=== PATIENT | male | born 1995 | race African-American/Black ===

== ENCOUNTER 2017-04-30 12:10 | Emergency (ER) | payer MEDICAID, OTHER ==
[~2017-04-30 12:10] MED LIST: OSEL75 PO
[2017-04-30 12:35] VITALS: BP 142/78; PULSE 110; RESP 16; TEMP 98.8; O2SAT 100
[2017-04-30 14:30] LABS: AUTOMATED NEUTROPHIL # 9.4 TH/MM3 (1.8-7.7); BASOPHIL % 0.3 % (0.0-2.0); EOSINOPHIL % 0.4 % (0.0-4.0); HEMATOCRIT 46.6 % (39.0-51.0); HEMOGLOBIN 15.8 GM/DL (13.0-17.0); LYMPH % 11.3 % (9.0-44.0); LYMPHOCYTE # 1.3 TH/MM3 (1.0-4.8); MEAN CELL VOLUME 83.9 FL (80.0-100.0); MEAN CORPUSCULAR HEMOGLOBIN 28.4 PG (27.0-34.0); MEAN CORPUSCULAR HGB CONC 33.9 % (32.0-36.0); MEAN PLATELET VOLUME 8.9 FL (7.0-11.0); MONO % 4.2 % (0.0-8.0); MONOCYTE # 0.5 TH/MM3 (0-0.9); NEUT % 83.8 % (16.0-70.0); PLATELET COUNT 289 TH/MM3 (150-450); RED BLOOD COUNT 5.56 MIL/MM3 (4.50-5.90); RED CELL DISTRIBUTION WIDTH 13.8 % (11.6-17.2); WHITE BLOOD COUNT 11.2 TH/MM3 (4.0-11.0)
[2017-04-30 14:50] LABS: ALBUMIN 4.2 GM/DL (3.4-5.0); ALT (GPT) 40 U/L (9-52); AST (GOT) 28 U/L (15-39); BICARBONATE 28.8 MEQ/L (21.0-32.0); BLOOD UREA NITROGEN 11 MG/DL (7-18); CALCIUM 9.2 MG/DL (8.5-10.1); CHLORIDE 103 MEQ/L (98-107); CREATININE 0.92 MG/DL (0.60-1.30); GLOMERULAR FILTRATION RATE 127 ML/MIN (>89); GLUCOSE,RANDOM 85 MG/DL (74-106); SODIUM (NA) 139 MEQ/L (136-145)
[2017-04-30 15:00] LABS: ALKALINE PHOSPHATASE 74 U/L (45-117); TOTAL BILIRUBIN ADULT 0.5 MG/DL (0.2-1.0); TOTAL PROTEIN 8.4 GM/DL (6.4-8.2)
[2017-04-30 15:18] LABS: ACETAMINOPHEN LESS THAN 2.0 MCG/ML (10.0-30.0)
--- NOTE | 2017-04-30 15:29 | PD ---
HPI Chief Complaint: Psychiatric Symptoms Time Seen by Provider: 15:10 Travel History International Travel<30 days: No Contact w/Intl Traveler<30days: No Traveled to known affect area: No History of Present Illness HPI 21-year-old male with history of aspergers syndrome presents under Esparza act initiated by the Police Department. According to his paperwork the patient posted a threatening statement on Facebook "this video actually making me want do the same shit such as killing up all her classmates in the room and everyone and [employer] I think I am be a serial killer one day and I really want to kill everyone that [employer]." The patient reports that he made that statement as a "prank" and did not mean what he said. He denies any suicidal or homicidal ideation. He denies any access to firearms. He denies any hallucinations. He denies any drug or alcohol use. He has no other complaints at this time. PFSH Past Medical History Medical History: Denies Significant Hx Diminished Hearing: No Immunizations Current: Yes Tetanus Vaccination: Unknown Influenza Vaccination: No Past Surgical History Surgical History: No Previous Surgery Social History Alcohol Use: No Tobacco Use: No Substance Use: No Allergies-Medications (Allergen,Severity, Reaction): Coded Allergies: No Known Allergies (Unverified Adverse Reaction, Unknown, 04/30/17) Reported Meds & Prescriptions Reported Meds & Active Scripts Active No Active Prescriptions or Reported Medications Review of Systems Except as stated in HPI: all other systems reviewed are Neg Physical Exam Narrative GENERAL: Well-developed well-nourished male in no acute distress SKIN: Warm and dry. HEAD: Atraumatic. Normocephalic. EYES: Pupils equal and round. No scleral icterus. No injection or drainage. ENT: No nasal bleeding or discharge. Mucous membranes pink and moist. NECK: Trachea midline. No JVD. CARDIOVASCULAR: Regular rate and rhythm. No murmur appreciated. RESPIRATORY: No accessory muscle use. Clear to auscultation. Breath sounds equal bilaterally. NEUROLOGICAL: Awake and alert. No obvious cranial nerve deficits. Motor grossly within normal limits. Normal speech. PSYCHIATRIC: Anxious, flat affect. Data Data Last Documented VS Vital Signs Date Time Temp Pulse Resp B/P (MAP) Pulse Ox O2 Delivery O2 Flow Rate FiO2 05/01/17 14:21 05/01/17 10:30 97 18 Room Air 05/01/17 06:33 96 04/30/17 12:35 98.8 Orders Orders Complete Blood Count With Diff (04/30/17 13:03) Comprehensive Metabolic Panel (04/30/17 13:03) Thyroid Stimulating Hormone (04/30/17 13:03) Psych Screen (04/30/17 13:03) Drug Screen, Random Urine (04/30/17 13:03) Alcohol (Ethanol) (04/30/17 13:03) Salicylates (Aspirin) (04/30/17 13:03) Tylenol (Acetaminophen) (04/30/17 13:03) Diet Regular Basic (04/30/17 Lunch) Diet Regular Basic (04/30/17 Dinner) Diet Regular Basic (05/01/17 Breakfast) Diet Regular Basic (05/01/17 Lunch) Ed Discharge Order (05/01/17 14:02) Labs Laboratory Tests Test 04/30/17 13:15 04/30/17 14:20 White Blood Count 11.2 TH/MM3 Red Blood Count 5.56 MIL/MM3 Hemoglobin 15.8 GM/DL Hematocrit 46.6 % Mean Corpuscular Volume 83.9 FL Mean Corpuscular Hemoglobin 28.4 PG Mean Corpuscular Hemoglobin Concent 33.9 % Red Cell Distribution Width 13.8 % Platelet Count 289 TH/MM3 Mean Platelet Volume 8.9 FL Neutrophils (%) (Auto) 83.8 % Lymphocytes (%) (Auto) 11.3 % Monocytes (%) (Auto) 4.2 % Eosinophils (%) (Auto) 0.4 % Basophils (%) (Auto) 0.3 % Neutrophils # (Auto) 9.4 TH/MM3 Lymphocytes # (Auto) 1.3 TH/MM3 Monocytes # (Auto) 0.5 TH/MM3 Eosinophils # (Auto) 0.0 TH/MM3 Basophils # (Auto) 0.0 TH/MM3 CBC Comment DIFF FINAL Differential Comment Blood Urea Nitrogen 11 MG/DL Creatinine 0.92 MG/DL Random Glucose 85 MG/DL Total Protein 8.4 GM/DL Albumin 4.2 GM/DL Calcium Level 9.2 MG/DL Alkaline Phosphatase 74 U/L Aspartate Amino Transf (AST/SGOT) 28 U/L Alanine Aminotransferase (ALT/SGPT) 40 U/L Total Bilirubin 0.5 MG/DL Sodium Level 139 MEQ/L Potassium Level 4.1 MEQ/L Chloride Level 103 MEQ/L Carbon Dioxide Level 28.8 MEQ/L Anion Gap 7 MEQ/L Estimat Glomerular Filtration Rate 127 ML/MIN Thyroid Stimulating Hormone 3rd Gen 1.990 uIU/ML Salicylates Level LESS THAN 1.7 MG/DL Acetaminophen Level LESS THAN 2.0 MCG/ML Ethyl Alcohol Level LESS THAN 3 MG/DL Urine Opiates Screen NEG Urine Barbiturates Screen NEG Urine Amphetamines Screen NEG Urine Benzodiazepines Screen NEG Urine Cocaine Screen NEG Urine Cannabinoids Screen NEG MDM Medical Decision Making Medical Screen Exam Complete: Yes Emergency Medical Condition: Yes Medical Record Reviewed: Yes Differential Diagnosis Adjustment reaction, ODD, conduct disorder, acute psychosis, major depressive disorder, intermittent explosive disorder Narrative Course 21-year-old male presents under Esparza act after making threatening statements on an online social media page. Mental health screening discussed with the patient. Psychiatric screen ordered. The patient is medically cleared for psychiatric disposition. Diagnosis Primary Impression: Medical clearance for psychiatric admission Scripts No Active Prescriptions or Reported Meds Juan Hennessy Apr 30, 2017 15:29
[2017-05-01 02:17] VITALS: BP 138/79; PULSE 107; RESP 19; O2SAT 97
[2017-05-01 06:33] VITALS: BP 129/81; PULSE 99; RESP 18; O2SAT 96
[2017-05-01 10:30] VITALS: BP 152/88; PULSE 97; RESP 18
--- NOTE | 2017-05-01 10:59 | PD ---
History of Present Illness Chief Complaint: Psychiatric Symptoms Time Seen by Provider: 10:50 Travel History International Travel<30 Days: No Contact w/Intl Traveler<30days: No Known affected area: No Legal Status Legal Status: Esparza Act Esparza Act Signed By: Hugo Doyle History of Present Illness: History of Present Illness HPI 21-year-old male with history of Asperger syndrome who presents under Esparza act initiated by the Police Department. According to his paperwork the patient posted a threatening statement on Facebook which reads as follows "this video actually making me want do the same shit such as killing up all her classmates in the room and everyone and [employer] I think I am be a serial killer one day and I really want to kill everyone that [employer]." The patient was taken to the police department and later was brought here to [facility] for psychiatric evaluation. Electronic medical record is reviewed. No previous contact with [facility] psychiatry Department. Toxicology report is negative. Patient has been monitored here in [facility] for extended period of time and has presented no behavioral concerns. He has denied to several staff members that he had any intention of harming anyone and that the call and the olivia that he made was a prank and that he was "playing around". Patient is seen this morning with KEVEN Lares. The patient is alert, oriented young male health in hospital scrubs. He is calm, cooperative and engaging. He appears of lower intellectual functioning. His speech is clear and he answers questions appropriately. He denies any intent of wanting to harm anyone and he goes on to say "I didn't mean what I said it was a prank and I don 't understand why they brought me here." The patient does not present any indication of any psychosis, no mary or hypomania. No significant clinical objective symptoms of depression or anxiety. He denies any past history of any violent behavior. He does not own any weapons and has no access to such. Telephone call to his mother, Oneyda at [phone]. She has no concerns over the remarks that he has made. She states that everybody makes mistakes. She also states that he has never been violent and has never been involved in any behavior which is of concern to her. She understands that when he said it is of concern to other people but he states that she has no reason to believe that he may want to harm anyone. No acces to weapons in the house. She also states that he is under her direct supervision all the time." I contacted the dice manager Mr. Jose Arenas to discuss case. Case has been discussed internally. PFSH Past Medical History Medical History: Denies Significant Hx Diminished Hearing: No Immunizations Current: Yes Tetanus Vaccination: Unknown Influenza Vaccination: No Past Surgical History Surgical History: No Previous Surgery Psychiatric History Psychiatric History Hx Psychiatric Treatment: Per mom: intellectually disabled, diagnosed with autism spectrum disorder in 2016, and Tourette's disorder. No history of disruptive behavior or violent behavior. History of Inpatient Treatment: No Guns or firearms in home: No Social History Single, never . Lives with his mother and his 2 other siblings. Attend[employer] high school and is in the 12th grade. Hx Alcohol Use: No Hx Tobacco Use: No Hx Substance Use: No Hx of Substance Use Treatment: No Family Psychiatric History Negative Allergies-Medications (Allergen,Severity, Reaction): Coded Allergies: No Known Allergies (Unverified Adverse Reaction, Unknown, 04/30/17) Reported Meds & Prescriptions Reported Meds & Active Scripts Active No Active Prescriptions or Reported Medications Review of Systems Ears, nose, mouth, throat: COMPLAINS OF: Hearing loss Psychiatric: DENIES: Anxiety, Confusion, Mood changes, Depression, Hallucinations, Agitation, Suicidal Ideation, Homicidal Ideation, Delusions Except as stated in HPI: all other systems reviewed are Neg Mental Status Examination Appearance: Appropriate Consciousness: Alert Orientation: x4 Motor Activity: Normal gait Speech: Unremarkable Language: Adequate Fund of Knowledge: Poor Attention and Concentration: Adequate Memory: Unremarkable (not formally tested) Mood: Appropriate Affect: Appropriate Thought Process & Associations: Intact, Logical, Goal directed Thought Content: Appropriate Hallucination Type: None Delusion Type: None Suicidal Ideation: No Suicidal Plan: No Suicidal Intention: No Homicidal Ideation: No Homicidal Plan: No Homicidal Intention: No Insight: Fair Judgment: Poor MDM Medical Decision Making Medical Record Reviewed: Yes Assessment/Plan 21-year-old male with history of Asperger's spectrum disorder who presents under Esparza act initiated by law enforcement after he allegedly made a Facebook posting indicating that he "wanted to do some she had such as calling up all the classmates in the room whenever went in [employer]. He also indicated that he I think, a be a serial killer one day and I really want to kill everybody and may leave high school". The patient was interrogated by the Police Department later. Him to [facility] for psychiatric evaluation. Patient was observed over a prolonged period of time and presented no behavioral dysregulation and no agitation or restlessness. There was no indication that the patient was experiencing any psychosis, no mary or hypomania. The patient denies any suicidal or homicidal ideation, intent or plan. He states that he made the message as a prank based on recent events that are over social media. He denies any intent of wanting to harm anyone. The patient has no access to any firearms. Furthermore the patient's mother has no concerns for her son's safety and indicates that he is supervised by her TIME. She also states that he has no history of any aggressive or violent behavior. She is advocating for his discharge from the hospital. She is advised of any changes in his his behavior concerns to bring him to the emergency department. The Esparza act is lifted as he presents no evidence of any unstable mental illness as defined under the Esparza act. The Esparza act is lifted. Patient is psychiatrically cleared for discharge Orders Orders Complete Blood Count With Diff (04/30/17 13:03) Comprehensive Metabolic Panel (04/30/17 13:03) Thyroid Stimulating Hormone (04/30/17 13:03) Psych Screen (04/30/17 13:03) Drug Screen, Random Urine (04/30/17 13:03) Alcohol (Ethanol) (04/30/17 13:03) Salicylates (Aspirin) (04/30/17 13:03) Tylenol (Acetaminophen) (04/30/17 13:03) Diet Regular Basic (04/30/17 Lunch) Diet Regular Basic (04/30/17 Dinner) Diet Regular Basic (05/01/17 Breakfast) Diet Regular Basic (05/01/17 Lunch) Results Vital Signs Date Time Temp Pulse Resp B/P (MAP) Pulse Ox O2 Delivery O2 Flow Rate FiO2 05/01/17 10:30 97 18 152/88 (109) Room Air 05/01/17 06:33 99 18 129/81 (97) 96 Room Air 05/01/17 02:17 107 19 138/79 (98) 97 Room Air 04/30/17 12:35 98.8 110 16 142/78 (99) 100 Laboratory Tests Test 04/30/17 13:15 04/30/17 14:20 White Blood Count 11.2 Red Blood Count 5.56 Hemoglobin 15.8 Hematocrit 46.6 Mean Corpuscular Volume 83.9 Mean Corpuscular Hemoglobin 28.4 Mean Corpuscular Hemoglobin Concent 33.9 Red Cell Distribution Width 13.8 Platelet Count 289 Mean Platelet Volume 8.9 Neutrophils (%) (Auto) 83.8 Lymphocytes (%) (Auto) 11.3 Monocytes (%) (Auto) 4.2 Eosinophils (%) (Auto) 0.4 Basophils (%) (Auto) 0.3 Neutrophils # (Auto) 9.4 Lymphocytes # (Auto) 1.3 Monocytes # (Auto) 0.5 Eosinophils # (Auto) 0.0 Basophils # (Auto) 0.0 CBC Comment DIFF FINAL Differential Comment Blood Urea Nitrogen 11 Creatinine 0.92 Random Glucose 85 Total Protein 8.4 Albumin 4.2 Calcium Level 9.2 Alkaline Phosphatase 74 Aspartate Amino Transf (AST/SGOT) 28 Alanine Aminotransferase (ALT/SGPT) 40 Total Bilirubin 0.5 Sodium Level 139 Potassium Level 4.1 Chloride Level 103 Carbon Dioxide Level 28.8 Anion Gap 7 Estimat Glomerular Filtration Rate 127 Thyroid Stimulating Hormone 3rd Gen 1.990 Salicylates Level LESS THAN 1.7 Acetaminophen Level LESS THAN 2.0 Ethyl Alcohol Level LESS THAN 3 Urine Opiates Screen NEG Urine Barbiturates Screen NEG Urine Amphetamines Screen NEG Urine Benzodiazepines Screen NEG Urine Cocaine Screen NEG Urine Cannabinoids Screen NEG Diagnosis Primary Impression: Medical clearance for psychiatric admission Additional Impression: Asperger's syndrome Psychiatrically Cleared: Yes Med/ Other Pt Specific Info: No Meds Exist/No RX given Prescriptions No Active Prescriptions or Reported Meds Disposition: 01 DISCHARGE HOME Condition: Stable Problem Qualifiers Jocelynn Najera May 01, 2017 10:59
--- NOTE | 2017-05-01 14:02 | PD ---
Physical Exam Date Seen by Provider: May 01, 2017 Time Seen by Provider: 14:01 Narrative 21-year-old male previously medically cleared for psychiatric evaluation has been seen by psychiatric staff and felt to be psychiatrically stable for discharge at this time. Patient continues to be medically stable at this time. Follow-up will be based on the psychiatric discharge note. Data Data Last Documented VS Vital Signs Date Time Temp Pulse Resp B/P (MAP) Pulse Ox O2 Delivery O2 Flow Rate FiO2 05/01/17 10:30 97 18 152/88 (109) Room Air 05/01/17 06:33 96 04/30/17 12:35 98.8 Orders Orders Complete Blood Count With Diff (04/30/17 13:03) Comprehensive Metabolic Panel (04/30/17 13:03) Thyroid Stimulating Hormone (04/30/17 13:03) Psych Screen (04/30/17 13:03) Drug Screen, Random Urine (04/30/17 13:03) Alcohol (Ethanol) (04/30/17 13:03) Salicylates (Aspirin) (04/30/17 13:03) Tylenol (Acetaminophen) (04/30/17 13:03) Diet Regular Basic (04/30/17 Lunch) Diet Regular Basic (04/30/17 Dinner) Diet Regular Basic (05/01/17 Breakfast) Diet Regular Basic (05/01/17 Lunch) Labs Laboratory Tests Test 04/30/17 13:15 04/30/17 14:20 White Blood Count 11.2 TH/MM3 Red Blood Count 5.56 MIL/MM3 Hemoglobin 15.8 GM/DL Hematocrit 46.6 % Mean Corpuscular Volume 83.9 FL Mean Corpuscular Hemoglobin 28.4 PG Mean Corpuscular Hemoglobin Concent 33.9 % Red Cell Distribution Width 13.8 % Platelet Count 289 TH/MM3 Mean Platelet Volume 8.9 FL Neutrophils (%) (Auto) 83.8 % Lymphocytes (%) (Auto) 11.3 % Monocytes (%) (Auto) 4.2 % Eosinophils (%) (Auto) 0.4 % Basophils (%) (Auto) 0.3 % Neutrophils # (Auto) 9.4 TH/MM3 Lymphocytes # (Auto) 1.3 TH/MM3 Monocytes # (Auto) 0.5 TH/MM3 Eosinophils # (Auto) 0.0 TH/MM3 Basophils # (Auto) 0.0 TH/MM3 CBC Comment DIFF FINAL Differential Comment Blood Urea Nitrogen 11 MG/DL Creatinine 0.92 MG/DL Random Glucose 85 MG/DL Total Protein 8.4 GM/DL Albumin 4.2 GM/DL Calcium Level 9.2 MG/DL Alkaline Phosphatase 74 U/L Aspartate Amino Transf (AST/SGOT) 28 U/L Alanine Aminotransferase (ALT/SGPT) 40 U/L Total Bilirubin 0.5 MG/DL Sodium Level 139 MEQ/L Potassium Level 4.1 MEQ/L Chloride Level 103 MEQ/L Carbon Dioxide Level 28.8 MEQ/L Anion Gap 7 MEQ/L Estimat Glomerular Filtration Rate 127 ML/MIN Thyroid Stimulating Hormone 3rd Gen 1.990 uIU/ML Salicylates Level LESS THAN 1.7 MG/DL Acetaminophen Level LESS THAN 2.0 MCG/ML Ethyl Alcohol Level LESS THAN 3 MG/DL Urine Opiates Screen NEG Urine Barbiturates Screen NEG Urine Amphetamines Screen NEG Urine Benzodiazepines Screen NEG Urine Cocaine Screen NEG Urine Cannabinoids Screen NEG MDM Medical Record Reviewed: Yes Supervised Visit with YAHAIRA: Yes Narrative Course 21-year-old male previously medically cleared for psychiatric evaluation has been seen by psychiatric staff and felt to be psychiatrically stable for discharge at this time. Patient continues to be medically stable at this time. Follow-up will be based on the psychiatric discharge note. Diagnosis Primary Impression: Medical clearance for psychiatric admission Patient Instructions: General Instructions, Reading Comprehension Disorder in Children (GEN) Departure Forms: Tests/Procedures Scripts No Active Prescriptions or Reported Meds Disposition: 01 DISCHARGE HOME Condition: Stable Ulysses Crowe May 01, 2017 14:02
== END 2017-05-01 14:21 | disposition home or self-care (01) ==
LOC: NEPJ 12:10
DX: F84.5 Asperger's syndrome (principal); F95.2 Tourette's disorder
CPT/HCPCS: 80053; 80307; 84443; 85025; 99284